=== PATIENT | male | born 1985 | race Caucasian/White ===

== ENCOUNTER 2017-02-25 14:53 | Emergency (ER) | payer MEDICAID ==
[~2017-02-25] VITALS: Ht 172.7 cm; Wt 88.5 kg
[~2017-02-25 14:53] MED LIST: KEFLEX
[2017-02-25 15:16] VITALS: BP 136/92
== END 2017-02-25 18:30 | disposition left against medical advice (07) ==
LOC: ER 14:58
DX: R51 Headache (principal); Z53.21 Procedure and treatment not carried out due to patient leaving prior to being seen by health care provider

== ENCOUNTER → 2017-03-15 | Emergency (ER) | payer MEDICAID | END | disposition left against medical advice (07) | LOC: ER 20:15 | DX: R07.89 Other chest pain (principal); Z53.21 Procedure and treatment not carried out due to patient leaving prior to being seen by health care provider ==